=== PATIENT | female | born 1980 ===

== ENCOUNTER 2025-02-15 13:29 | Emergency (ER) | payer OTHER ==
[~2025-02-15] VITALS: Ht 157.5 cm; Wt 61.7 kg
[2025-02-15] MEDS ORDERED: ERYT.5TO LEFTEYE (13:39)
== END 2025-02-15 13:43 | disposition home or self-care (01) ==
LOC: ER 13:29
DX: H01.004 Unspecified blepharitis left upper eyelid (principal); Z88.0 Allergy status to penicillin; Z79.899 Other long term (current) drug therapy
CPT/HCPCS: 99282